=== PATIENT | male | born 1960 | race Caucasian/White ===

== ENCOUNTER 2020-09-17 11:50 | Emergency (ER) | payer OTHER ==
[2020-09-17 13:28] LABS: BILIRUBIN 2+ mg/dL (NEGATIVE); BLOOD 2+ Ery/uL (NEGATIVE); CLARITY CLEAR (CLEAR); COLOR YELLOW (YELLOW); GLUCOSE (U) NORMAL (NORMAL); LEUKOCYTES NEGATIVE Leu/uL (NEGATIVE); NITRITE NEGATIVE (NEGATIVE); PROTEIN 1+ mg/dL (NEGATIVE); SPECIFIC GRAVITY 1.025 (1.001-1.030); pH 5.5 (5.0-9.0)
[2020-09-17 13:28] LABS: BASOPHIL 0.1 % (0-2); EOSINOPHIL 0 % (0-5); HCT 40.7 % (42.0-52.0); LYMPHOCYTE 7.6 % (15-48); MCH 28.6 pg (25.0-31.0); MCHC 31.9 g/dL (32.0-36.0); MCV 89.5 fL (78.0-100.0); MONOCYTE 8.6 % (0-12); MPV 10.4 fL (6.0-9.5); NEUTROPHIL 83.3 % (41-80); NRBC 0; PLT 209 K/uL (150-400); RBC 4.55 M/uL (4.70-6.00); RDW 13.2 % (11.5-14.0); WBC 7.5 K/uL (4.0-10.5)
[2020-09-17 13:36] LABS: BACTERIA TRACE
[2020-09-17 13:52] LABS: BUN/CREAT RATIO (CALC) 16.4 RATIO; CREATININE 1.16 mg/dL (0.67-1.17); POTASSIUM 3.3 mmol/L (3.5-5.1)
[2020-09-17 13:58] LABS: CORONAVIRUS 2019 SARS-COV-2 NEGATIVE (NEGATIVE); INFLUENZA A NAA NEGATIVE (NEGATIVE)
[2020-09-17] MEDS ORDERED: AUGMENTIN 875-1 EACH PO (14:17)
== END 2020-09-17 14:36 | disposition home or self-care (01) ==
LOC: FER 11:50
PROVIDERS: Emergency Medicine
DX: J18.1 Lobar pneumonia, unspecified organism (principal); I10 Essential (primary) hypertension; Z79.899 Other long term (current) drug therapy; Z20.822 Contact with and (suspected) exposure to COVID-19
CPT/HCPCS: 36415; 71045; 80048; 81001; 83605; 85025; 87040; J0696; J7030; U0002

== ENCOUNTER 2020-10-15 21:27 | Emergency (ER) | payer OTHER ==
[~2020-10-15 21:27] MED LIST: AUGMENTIN 875-1 EACH PO
[2020-10-15 22:05] LABS: BASOPHIL 0.5 % (0-2); EOSINOPHIL 0 % (0-5); HCT 36.8 % (42.0-52.0); HGB 12.1 g/dl (13.2-18.0); LYMPHOCYTE 11.2 % (15-48); MCH 28.7 pg (25.0-31.0); MCHC 32.9 g/dL (32.0-36.0); MCV 87.4 fL (78.0-100.0); MONOCYTE 7.5 % (0-12); MPV 9.9 fL (6.0-9.5); NEUTROPHIL 80.3 % (41-80); NRBC 0; PLT 251 K/uL (150-400); RBC 4.21 M/uL (4.70-6.00); RDW 14.2 % (11.5-14.0); WBC 7.4 K/uL (4.0-10.5)
[2020-10-15 22:22] LABS: ALBUMIN 3.2 g/dL (3.4-5.0); BILIRUBIN - TOTAL 0.3 mg/dL (0.2-1.0); CREATININE 1.12 mg/dL (0.67-1.17); GLOBULIN (CALCULATION) 2.9 g/dL; POTASSIUM 3.1 mmol/L (3.5-5.1); TOTAL PROTEIN 6.1 g/dL (6.4-8.2)
[2020-10-15 22:42] LABS: ECSTASY (MDMA) NEGATIVE (NEGATIVE); MARIJUANA (THC) NEGATIVE (NEGATIVE)
[2020-10-15 22:43] LABS: AMPHETAMINES NEGATIVE (NEGATIVE); BARBITURATES NEGATIVE (NEGATIVE); METHADONE POSITIVE (NEGATIVE); OPIATES NEGATIVE (NEGATIVE); OXYCODONE NEGATIVE (NEGATIVE)
== END 2020-10-15 23:10 | disposition home or self-care (01) ==
LOC: FER 21:27
PROVIDERS: Emergency Medicine
DX: G40.409 Other generalized epilepsy and epileptic syndromes, not intractable, without status epilepticus (principal)
CPT/HCPCS: 36415; 70450; 80053; 80305; 85025